=== PATIENT | male | born 1960 | race Caucasian/White ===

== ENCOUNTER → 2024-02-08 | Outpatient (CLI) | payer MEDICARE, OTHER ==
[2024-02-08 10:34] VITALS: BP 161/84; PULSE 53; RESP 16; TEMP 97.1
--- NOTE | 2024-02-08 15:07 | P.PAINPG ---
PQRS Measure Charge Sheet Comment: HISTORY OF PRESENT ILLNESS: A 63 yr old male w at side as a referral from Dr Dhillon presents today w severe and chronic LBP > 3 mo secondary to radiculopathy, spondylosis and facet arthropathy without myelopathy for evaluation. Pt states pain level is provoked at 8 /10 in intensity, constant, localized in the lumbar spine, predominantly axial, sharp in character w occasional shooting pain towards the L hip. Pain is provoked by bending. Pain is alleviated by PT x 6 wks which ended in 2014, medications ([place], Tramadol, Zanaflex, Ibu), topical Icy-Hot, heat, ice, repositioning and rest . PMH: OA, NIDDM II, Iron deficiency anemia, Vitamin D Deficiency PSH: Lumbar Fusion (2020), R Hip Replacement, BL Knee Replacement, BL Shoulder Surgery SH: Chewing tobacco, Occ ETOH use, No illicit drug use. and relocated from the [facility]. FH: Mo- CA, Fa- CA All: See list Meds: See list REVIEW OF ORGAN SYSTEMS: CONSTITUTIONAL: No fevers or chills. No recent weight loss. NEUROLOGICAL: + numbness and tingling along the distal extremities. No seizure disorders or headaches. MUSCULOSKELETAL: + pain PSYCHIATRIC: Denies current depression or suicidal thoughts. Physical Examinations : Constitutional : Cooperative , not in acute distress . Neurologic : Cranial nerve II to XII intact. No focal neurological deficits. Psychiatric : alert & oriented x 3. Matching mood & appropriate affect. Judgment & insight intact. Musculoskeletal : Cervical Spine Motor strength in the deltoid and biceps: Normal right side. Normal Left side Motor strength biceps and the wrist extensors: Normal right side . Normal left side Motor strength in the triceps muscle: Normal right side. Normal left side Deep tendon reflexes: Normal at the biceps. Normal at Brachioradialis. Normal at triceps Vertebral body tenderness to deep palpation over Cervical facet loading test: positive bilaterally Spurling test: positive bilaterally Neck distraction test: positive bilaterally Gustavo sign: positive bilaterally Lumbar spine Motor strength lower extremities ,thigh and legs 5/5 Right side , 5/5 Left side Deep tendon reflexes : Normal Knee Jerk. Normal Ankle Jerk Vertebral body tenderness over De La Garza Test positive Lumbar facet Loading Test: positive Right / positive Left Range of motion of the lumbar spine Flexion 30 degrees, extension 10 degrees Straight Leg Raise test: Left/ Right positive at degrees Jim test: positive right / positive left. Severe tenderness over the Sacroiliac joint on the Right / Left sides Gaenslen test: positive bilaterally Seated flexion test: positive bilaterally. Sacral spine : Severe tenderness over the Sacroiliac joint: right side / left side Range of motion: Flexion of the lumbar spine <60 degrees Range of motion: Extension of the lumbar spine <20 degrees Gaenslen's Test positive Jim test: positive right side / left side Thigh Thrust Test Sacral Thrust Test Imaging: None on file Assessment/ Plan : Lumbar radiculopathy Recommendation of lumbar x ray M54.16. May need additional testing if indicated. PT x 6 wks M54.16 . Opiate/ narcotic agreement signed 02/08/24. [place] 10/325mg #120 w 1 RF. Use, side effects, adverse reactions, safe storage discussed. All questions answered. I have spent greater than 30 minutes on patient care today. Dr Hill was available by phone for the evaluation of this patient. The time was used to review the medical records including relevant urine studies and Prescription history (MAPs), review of the available imaging, evaluation and examination of the patient, coordination of care with the medical staff and if applicable referring physicians, as well as creation of the medical record - Pain Location Bilateral Lower Back Non-Pharmacological Interventions: Chiropractic Treatment, Heat, Ice, Inactivity, Massage, Physical Therapy, Position/Reposition, Relaxation Technique, Sitting Pharmacological Interventions: PRN Medication, Scheduled Medication, Topical Medication Home Medications: Ambulatory Orders Anastrozole [Arimidex] 1 mg PO DAILY 02/08/24 Aspirin [Adult Low Dose Aspirin EC] 81 mg PO 02/08/24 Atorvastatin [Lipitor] 10 mg PO DAILY 02/08/24 Elderberry Fruit [Sambucus Elderberry Orig Syrup] 50 mg PO 02/08/24 HYDROcodone/APAP 10-325MG [[place] 10-325] 1 tab PO QID PRN 30 Days #120 tab 02/08/24 HYDROcodone/APAP 10-325MG [[place] 10-325] 1 tab PO QID PRN 30 Days #120 tab 02/08/24 Melatonin 5 mg PO HS 02/08/24 Niacin 1,000 mg PO 02/08/24 Testosterone Cypionate [Depo-Testosterone] 0 mg IM 02/08/24 metFORMIN HCL 1,000 mg PO 02/08/24 tiZANidine [Zanaflex] 4 mg PO Q8HR PRN 02/08/24 traMADol HCL 50 mg PO Q6H 02/08/24 Controlled Substance Measures - Controlled Substance Measures Is patient prescribed a controlled substance at discharge?: Yes When asked, does pt state using other controlled substances?: No If prescribed controlled substance>3 days was MAPS reviewed?: Yes If Rx opioid, was Start Talking consent form obtained?: Yes Was information provided regarding opioid addiction?: Yes
== END ==
LOC: PNWHC3 10:03
PROVIDERS: ATTEND Specialist
DX: M54.16 Radiculopathy, lumbar region (principal); M96.1 Postlaminectomy syndrome, not elsewhere classified; Z88.8 Allergy status to other drugs, medicaments and biological substances
CPT/HCPCS: 99202

== ENCOUNTER → 2024-02-08 | Outpatient (CLI) | payer MEDICARE, OTHER ==
--- NOTE | 2024-02-08 14:14 | XR ---
EXAMINATION TYPE: XR lumbar spine 2 or 3V DATE OF EXAM: 02/08/2024 11:55 AM COMPARISON: None CLINICAL INDICATION: Male, 63 years old with history of M54.16 RADICULOPATHY, LUMBAR REGION; [facility] TECHNIQUE: XR lumbar spine 2 or 3V - Frontal, lateral and coned in L5-S1 lateral views of the spine. FINDINGS: No evidence of any acute osseous pathology. No evidence of loss of vertebral body height i s seen. There is normal alignment of the lumbar vertebral bodies. Mild degeneration changes spine wit h disc space narrowing facet joint arthropathy. Post surgical changes spine at L4-L5 and S1. Hardware appears intact. Discectomy at L4-L5 and L5-S1. IMPRESSION: 1. No acute fracture. 2. Post surgical changes with hardware intact. 3. Mild multilevel disc degeneration. [facility], , 02/08/2024 2:12 PM
== END | disposition home or self-care (01) ==
LOC: RADXRMAIN 11:24
PROVIDERS: ATTEND Specialist
DX: M51.16 Intervertebral disc disorders with radiculopathy, lumbar region (principal); M47.27 Other spondylosis with radiculopathy, lumbosacral region
CPT/HCPCS: 72100

== ENCOUNTER → 2024-02-26 | Outpatient (CLI) | payer MEDICARE, OTHER ==
--- NOTE | 2024-02-26 10:15 | MR ---
EXAMINATION TYPE: MR lumbar spine wo con DATE OF EXAM: 02/26/2024 8:27 AM COMPARISON: None. CLINICAL INDICATION: Male, 63 years old with history of M54.16 RADICULOPATHY, LUMBAR REGION, Low back pain into rt leg IV Contrast: cc (None if empty) TECHNIQUE: Multiplanar, multisequence images of the lumbar spine were acquired without IV contrast. Findings: There are postsurgical changes of interbody and posterior metallic fusion of L4, L5 and S1. The lumbar vertebral segments are normal in height. Slight anterolisthesis of L4 on L5. The L1-2, L2-3 disks are normal in height and signal intensity. There is minimal narrowing of the L3- 4 disc indicating minimal degenerative disc disease. Evaluation of the thecal sac is mildly limited in the lower lumbar spine secondary to metallic artifa ct but there is no definite spinal stenosis or disc herniation. There is moderate to possibly severe neural foraminal stenosis at the L3-4 level on the right. There is no significant neural foraminal stenosis on the left. IMPRESSION: 1. Posterior changes from L3 through S1. 2. No lumbar disc herniation or spinal stenosis. 3. Minimal degenerative disease at the L3-4 level. 4. Moderate to possibly severe neuroforaminal stenosis at the L3-4 level on the right. [facility], , 02/26/2024 10:13 AM
== END | disposition home or self-care (01) ==
LOC: RADMRIMAIN 06:20
PROVIDERS: ATTEND Specialist
DX: M47.26 Other spondylosis with radiculopathy, lumbar region (principal)
CPT/HCPCS: 72148

== ENCOUNTER → 2024-04-04 | Outpatient (CLI) | payer MEDICARE, OTHER ==
[2024-04-04 11:53] VITALS: BP 160/78; PULSE 52; RESP 16; TEMP 97.3
--- NOTE | 2024-04-04 15:43 | P.PAINPG ---
PQRS Measure Charge Sheet Comment: HISTORY OF PRESENT ILLNESS: A 63 yr old male w at side presents today w severe and chronic LBP > 3 mo secondary to L4-S1 posterior fusion w hardware, post laminectomy syndrome for evaluation. Pt states pain level is provoked at 8 /10 in intensity, constant, localized in the lumbar spine, predominantly axial, sharp in character w occasional shooting pain towards the L hip. Pain is provoked by bending. Pain is alleviated by PT x 6 wks which ended in 2014, medications, topical, heat, ice, repositioning and rest . Interventional procedures include Medications include [place], Tramadol, Zanaflex, Ibu, Icy-Hot REVIEW OF ORGAN SYSTEMS: CONSTITUTIONAL: No fevers or chills. No recent weight loss. NEUROLOGICAL: + numbness and tingling along the distal extremities. No seizure disorders or headaches. MUSCULOSKELETAL: + pain PSYCHIATRIC: Denies current depression or suicidal thoughts. Physical Examinations : Constitutional : Cooperative , not in acute distress . Neurologic : Cranial nerve II to XII intact. No focal neurological deficits. Psychiatric : alert & oriented x 3. Matching mood & appropriate affect. Judgment & insight intact. Musculoskeletal : Cervical Spine Motor strength in the deltoid and biceps: Normal right side. Normal Left side Motor strength biceps and the wrist extensors: Normal right side . Normal left side Motor strength in the triceps muscle: Normal right side. Normal left side Deep tendon reflexes: Normal at the biceps. Normal at Brachioradialis. Normal at triceps Vertebral body tenderness to deep palpation over Cervical facet loading test: positive bilaterally Spurling test: positive bilaterally Neck distraction test: positive bilaterally Gustavo sign: positive bilaterally Lumbar spine Motor strength lower extremities ,thigh and legs 5/5 Right side , 5/5 Left side Deep tendon reflexes : Normal Knee Jerk. Normal Ankle Jerk Vertebral body tenderness over L3 De La Garza Test positive R> L L3-L4 Lumbar facet Loading Test: positive Right / positive Left Range of motion of the lumbar spine Flexion 30 degrees, extension 10 degrees Straight Leg Raise test: Left/ Right positive at degrees Jim test: positive right / positive left. Severe tenderness over the Sacroiliac joint on the Right / Left sides Gaenslen test: positive bilaterally Seated flexion test: positive bilaterally. Sacral spine : Severe tenderness over the Sacroiliac joint: right side / left side Range of motion: Flexion of the lumbar spine <60 degrees Range of motion: Extension of the lumbar spine <20 degrees Gaenslen's Test positive Jim test: positive right side / left side Thigh Thrust Test Sacral Thrust Test Imaging: MRI non contrast lumbar spine from 02/26/24 reviewed Assessment/ Plan : L4-S1 posterior fusion w hardware, post laminectomy syndrome Recommendation of medication refill and JOSE L3-L4 #1. PT script x 6 wks reissued M54.16. Risks, benefits of procedure discussed and pt verbalized understanding. Protocol for discontinuation/ continuation of medications florin procedure discussed. UDS collected 04/04/24. Opiate/ narcotic agreement signed 02/08/24. Perry 10/325mg #120 w 1 RF. Use, side effects, adverse reactions, safe storage discussed. All questions answered. I have spent greater than 30 minutes on patient care today. Dr Hill was available by phone for the evaluation of this patient. The time was used to review the medical records including relevant urine studies and Prescription history (MAPs), review of the available imaging, evaluation and examination of the patient, coordination of care with the medical staff and if applicable referring physicians, as well as creation of the medical record PQRS Narrative: Narcotic Agreement Date Signed 02/08/24 Hx Alcohol Use (MH) No Home Medications: Ambulatory Orders Anastrozole [Arimidex] 1 mg PO DAILY 02/08/24 Aspirin [Adult Low Dose Aspirin EC] 81 mg PO 02/08/24 Atorvastatin [Lipitor] 10 mg PO DAILY 02/08/24 Elderberry Fruit [Sambucus Elderberry Orig Syrup] 50 mg PO 02/08/24 Melatonin 5 mg PO HS 02/08/24 Niacin 1,000 mg PO 02/08/24 Testosterone Cypionate [Depo-Testosterone] 0 mg IM 02/08/24 metFORMIN HCL 1,000 mg PO 02/08/24 tiZANidine [Zanaflex] 4 mg PO Q8HR PRN 02/08/24 traMADol HCL 50 mg PO Q6H 02/08/24 HYDROcodone/APAP 10-325MG [[place] 10-325] 1 tab PO QID PRN 30 Days #120 tab 04/04/24 HYDROcodone/APAP 10-325MG [[place] 10-325] 1 tab PO QID PRN 30 Days #120 tab 04/04/24 Controlled Substance Measures - Controlled Substance Measures Is patient prescribed a controlled substance at discharge?: Yes When asked, does pt state using other controlled substances?: Yes If prescribed controlled substance>3 days was MAPS reviewed?: Yes
== END ==
LOC: PNWHC3 10:26
PROVIDERS: ATTEND Specialist
DX: M43.26 Fusion of spine, lumbar region (principal); M96.1 Postlaminectomy syndrome, not elsewhere classified; Z91.041 Radiographic dye allergy status
CPT/HCPCS: 80307; G0463; 99212

== ENCOUNTER 2024-04-14 13:19 | Emergency (ER) | payer MEDICARE, OTHER ==
[2024-04-14 14:11] VITALS: RESP 18
--- NOTE | 2024-04-14 14:52 | ED ---
Fall HPI - General Chief Complaint: Fall Stated Complaint: fall Time Seen by Provider: 04/14/24 13:31 Source: patient Mode of arrival: ambulatory Limitations: no limitations - History of Present Illness Initial Comments: 63-year-old male presents emergency department with chief complaint of slip and fall. Patient states he slipped on ice falling to his left hip. States he bumped his head but he has no complaints of pain. S states this happened yesterday. Patient states he has no dizziness no neck pain no upper back pain he was his lower back pain from prior surgeries no worsening symptoms primary complaint is left hip and upper ribs. - Related Data Home Medications Medication Instructions Recorded Confirmed Anastrozole [Arimidex] 1 mg PO DAILY 02/08/24 02/08/24 Aspirin [Adult Low Dose Aspirin EC] 81 mg PO 02/08/24 Atorvastatin [Lipitor] 10 mg PO DAILY 02/08/24 02/08/24 Elderberry Fruit [Sambucus 50 mg PO 02/08/24 Elderberry Orig Syrup] Melatonin 5 mg PO HS 02/08/24 02/08/24 Niacin 1,000 mg PO 02/08/24 Testosterone Cypionate 0 mg IM 02/08/24 [Depo-Testosterone] metFORMIN HCL 1,000 mg PO 02/08/24 tiZANidine [Zanaflex] 4 mg PO Q8HR PRN 02/08/24 02/08/24 traMADol HCL 50 mg PO Q6H 02/08/24 02/08/24 Previous Rx's Medication Instructions Recorded HYDROcodone/APAP 10-325MG [[place] 1 tab PO QID PRN 30 Days #120 tab 04/04/24 10-325] HYDROcodone/APAP 10-325MG [[place] 1 tab PO QID PRN 30 Days #120 tab 04/04/24 10-325] Allergies Allergy/AdvReac Type Severity Reaction Status Date / Time iodine Allergy Rash/Hives Verified 02/08/24 10:34 Review of Systems ROS Statement: Those systems with pertinent positive or pertinent negative responses have been documented in the HPI. ROS Other: All systems not noted in ROS Statement are negative. Past Medical History Past Medical History: Diabetes Mellitus Additional Past Medical History / Comment(s): DDD History of Any Multi-Drug Resistant Organisms: None Reported Past Surgical History: Orthopedic Surgery Additional Past Surgical History / Comment(s): back Past Psychological History: No Psychological Hx Reported Smoking Status: Unknown if ever smoked General Exam Limitations: no limitations General appearance: alert, in no apparent distress Head exam: Present: atraumatic, normocephalic, normal inspection Eye exam: Present: normal appearance, PERRL, EOMI. Absent: scleral icterus, conjunctival injection, periorbital swelling Neck exam: Present: full ROM Respiratory exam: Present: normal lung sounds bilaterally. Absent: respiratory distress, wheezes, rales, rhonchi, stridor Cardiovascular Exam: Present: regular rate, normal rhythm, normal heart sounds. Absent: systolic murmur, diastolic murmur, rubs, gallop, clicks GI/Abdominal exam: Present: soft, normal bowel sounds. Absent: distended, tenderness, guarding, rebound, rigid Extremities exam: Present: other (Left hip, left upper thigh swelling, tenderness to palpation neurovasc intact full range of motion upper extremities within normal limits) Back exam: Present: full ROM. Absent: tenderness Neurological exam: Present: alert, oriented X3, CN II-XII intact, reflexes normal. Absent: motor sensory deficit Skin exam: Present: warm, dry, intact, normal color. Absent: rash Course Vital Signs 04/14/24 04/14/24 13:25 14:10 Temperature 97.5 F L Pulse Rate 42 L 50 L Respiratory 16 18 Rate Blood Pressure 91/54 96/56 O2 Sat by Pulse 99 95 Oximetry Medical Decision Making - Medical Decision Making Was pt. sent in by a medical professional or institution (, PA, MIDDLE SCHOOL DIRECTOR, urgent care, hospital, or long term...) When possible be specific @ -No Did you speak to anyone other than the patient for history (EMS, parent, family, police, friend...)? What history was obtained from this source @ -No Did you review nursing and triage notes (agree or disagree)? Why? @ -I reviewed and agree with nursing and triage notes Were old charts reviewed (outside hosp., previous admission, EMS record, old EKG, old radiological studies, urgent care reports/EKG's, long term records)? Report findings @ -No old charts were reviewed Differential Diagnosis (chest pain, altered mental status, abdominal pain women, abdominal pain men, vaginal bleeding, weakness, fever, dyspnea, syncope, headache, dizziness, GI bleed, back pain, seizure, CVA, palpatations, mental health, musculoskeletal)? @ -Fall, pelvic fracture, hip fracture, hip contusion rib fracture EKG interpreted by me (3pts min.). @ -None X-rays interpreted by me (1pt min.). @ -Chest x-ray shows no acute cardiopulmonary process X-ray left hip AP pelvis no acute fracture CT interpreted by me (1pt min.). @ -None done U/S interpreted by me (1pt. min.). @ -None done What testing was considered but not performed or refused? (CT, X-rays, U/S, labs)? Why? @ -None What meds were considered but not given or refused? Why? @ -None Did you discuss the management of the patient with other professionals (professionals i.e. , PA, MIDDLE SCHOOL DIRECTOR, lab, RT, psych nurse, social media manager, infusion therapy nurse, teacher, airfield services officer, child support case officer)? Give summary @ -No Was smoking cessation discussed for >3mins.? @ -No Was critical care preformed (if so, how long)? @ -No Were there social determinants of health that impacted care today? How? (Homelessness, low income, unemployed, alcoholism, drug addiction, transportation, low edu. Level, literacy, decrease access to med. care, nursing home, rehab)? @ -No Was there de-escalation of care discussed even if they declined (Discuss DNR or withdrawal of care, Hospice)? DNR status @ -No What co-morbidities impacted this encounter? (DM, HTN, Smoking, COPD, CAD, Cancer, CVA, ARF, Chemo, Hep., AIDS, mental health diagnosis, sleep apnea, morbid obesity)? @ -None Was patient admitted / discharged? Hospital course, mention meds given and route, prescriptions, significant lab abnormalities, going to OR and other pertinent info. @ -Discharge patient presented for slip and fall he is ambulatory patient has left hip contusion hematoma will be discharged in stable condition return parameters gt. Undiagnosed new problem with uncertain prognosis? @ -No Drug Therapy requiring intensive monitoring for toxicity (Heparin, Nitro, Insulin, Cardizem)? @ -No Were any procedures done? @ -No Diagnosis/symptom? @ -Left hip contusion, slip and fall Acute, or Chronic, or Acute on Chronic? @ -Acute Uncomplicated (without systemic symptoms) or Complicated (systemic symptoms)? @ -Uncomplicated Side effects of treatment? @ -No Exacerbation, Progression, or Severe Exacerbation? @ -No Poses a threat to life or bodily function? How? (Chest pain, [place], [place], pneumonia, PE, COPD, DKA, ARF, appy, cholecystitis, CVA, Diverticulitis, Homicidal, Suicidal, threat to staff... and all critical care pts) @ -No Disposition Clinical Impression: Fall, Hip hematoma, left, Contusion, hip Disposition: HOME SELF-CARE Condition: Stable Instructions (If sedation given, give patient instructions): Hip Contusion (ED) Additional Instructions: Please return to the Emergency Department if symptoms worsen or any other concerns. Is patient prescribed a controlled substance at d/c from ED?: No Referrals: Edd Dhillon Jr, DO [Primary Care Provider] - 1-2 days Time of Disposition: 15:34
--- NOTE | 2024-04-14 15:28 | XR ---
EXAMINATION TYPE: XR Hip LT and AP Pelvis DATE OF EXAM: 04/14/2024 2:53 PM COMPARISON: None CLINICAL INDICATION: Male, 63 years old with history of fall, pain; PHH, pain TECHNIQUE: XR Hip LT and AP Pelvis; hip was examined in the frontal and lateral projections and a AP pelvis. FINDINGS: No evidence for acute process, joint dislocation or significant soft tissue swelling. Right hip arthroplasty appears intact. Degeneration changes of the lower spine appears intact. Mild d egeneration changes left hip. IMPRESSION: No acute process. [facility], , 04/14/2024 3:25 PM
--- NOTE | 2024-04-14 15:30 | XR ---
EXAMINATION TYPE: XR chest 1V DATE OF EXAM: 04/14/2024 2:53 PM COMPARISON: Chest radiographs from CLINICAL INDICATION: Male, 63 years old with history of fall, pain; TECHNIQUE: XR chest 1V Frontal view of the chest. FINDINGS: Lungs/Pleura: There is no evidence of pleural effusion, focal consolidation, or pneumothorax. Pulmonary vascularity: Unremarkable. Heart/mediastinum: Cardiomediastinal silhouette is unremarkable. Musculoskeletal: No acute osseous pathology. IMPRESSION: No acute cardiopulmonary disease/process. [facility], , 04/14/2024 3:27 PM
[2024-04-14 15:49] VITALS: BP 152/81; PULSE 48; TEMP 98
== END 2024-04-14 16:20 | disposition home or self-care (01) ==
LOC: EC 13:19
DX: S70.02XA Contusion of left hip, initial encounter (principal); Z88.8 Allergy status to other drugs, medicaments and biological substances; W00.0XXA Fall on same level due to ice and snow, initial encounter
CPT/HCPCS: 71045; 73502; 99283

== ENCOUNTER 2024-04-21 08:21 | Day surgery (SDC) | payer MEDICARE, OTHER ==
[2024-04-20 09:05] VITALS: BMI 38.7
[2024-04-21] MEDS ORDERED: LACTATED RINGERS 1,000 ML IV SCH (08:29)
[2024-04-21 08:39] VITALS: TEMP 97.8
[2024-04-21 08:45] LABS: Glucose,Whole Blood 118 mg/dL (70-110)
[2024-04-21] MEDS ORDERED: methylPREDNISolone ACETATE 80 MG/ML 1 ML VIAL ONE (09:48)
[2024-04-21] MEDS ORDERED: IOPAMIDOL M300 15ML VIAL ONE (09:48)
--- NOTE | 2024-04-21 10:03 | P.PCN ---
Description of Procedure: PREOPERATIVE DIAGNOSIS: 1- Lumbar Degenerative Disc Diseases 2-Lumbar spondylosis with Facet arthropathy without myelopathy. 3-lumbar spinal stenosis POSTOPERATIVE DIAGNOSIS: 1-lumbar degenerative disc disease. 2-lumbar spondylosis with facet arthropathy without myelopathy. 3-lumbar spinal stenosis. PROCEDURE Injection of radio contrast material into L3-4 interspace, interpretation of epidurogram, injection of steroid at L3-4 epidural space under fluoroscopic guidance. ANESTHESIA: Lidocaine 1% subcutaneously. In OR continuous pulse ox, EKG, blood pressure and verbal communication was maintained with the patient. EBL: Minimal PROCEDURE INDICATION: Before the procedure were discussed with the patient detailed procedure, alternatives, complications including infection, bleeding, nerve damage, paralysis all of which could be permanent. Patient understands and all questions were answered. PROCEDURE DESCRIPTION : After getting consent, patient in OR in prone position. Back was prepped with chlorhexidine and draped in sterile fashion. After injecting 10 mL of 1% lidocaine subcutaneously, a 20-gauge Tuohy needle was introduced at L3-4 interspace with loss of resistance technique using a syringe filled with air. Negative CSF, negative blood, negative paresthesia. Needle position was confirmed with AP and lateral view of the fluoroscope. After repeat negative aspiration 2 mL of Omnipaque 200 water soluble contrast was injected. Contrast was noted in the epidural space. No contrast was noted into intrathecal or intravascular space. After repeat negative aspiration 6 mL solution was injected intermittently which consists of 5 mL of preservative-free normal saline mixed with 1 mL of 80 mg Depo-Medrol. Needle was withdrawn intact. Skin was cleansed and Band-Aids was applied. DISPOSITION / PLANS: The patient tolerated the procedure well. No complication. The patient was placed in a supine position and transferred to the recovery area in a stable condition for observation. There was no evidence of lower extremity motor or sensory deficit after the procedure. Patient was discharged from the recovery room after meeting discharge criteria. Home discharge instructions were given to the patient by the staff. The patient was reexamined prior to discharge. The patient will schedule a follow up in the clinic in 2-4 weeks.
--- NOTE | 2024-04-21 10:21 | FL ---
Intraoperative/procedural fluoroscopic services were provided for lumbar epidural steroid injection. Total fluoroscopy time is 22.5 seconds with a total of 3 submitted images to PACS. Total DAP [id number] [id number]. Please see the operative note for further details. [facility], , 04/21/2024 10:18 AM
[2024-04-21 10:30] VITALS: BP 157/75; PULSE 47; RESP 18
== END 2024-04-21 10:41 | disposition home or self-care (01) ==
LOC: ORPAIN 08:21
PROVIDERS: ATTEND Pain Medicine Interventional Pain Medicine
DX: M47.816 Spondylosis without myelopathy or radiculopathy, lumbar region (principal); M51.369 Other intervertebral disc degeneration, lumbar region without mention of lumbar back pain or lower extremity pain; M48.061 Spinal stenosis, lumbar region without neurogenic claudication
CPT/HCPCS: 62323; Q9967; J1010

== ENCOUNTER → 2024-05-30 | Outpatient (CLI) | payer MEDICARE, OTHER ==
[2024-05-30 11:09] VITALS: BP 164/86; PULSE 52; RESP 16; TEMP 97.3
--- NOTE | 2024-05-30 13:45 | P.PAINPG ---
PQRS Measure Charge Sheet Comment: HISTORY OF PRESENT ILLNESS: A 63 yr old male w at side presents today w severe and chronic LBP > 3 mo secondary to L4-S1 posterior fusion w hardware, post laminectomy syndrome for evaluation s/p JOSE L3-L4 #1. Pt states he experienced 40 % pain relief x 6 wks s/p procedure. Pt states pain level is provoked at 8 /10 in intensity, constant, localized in the lumbar spine, predominantly axial, sharp in character without shooting pain. Pain is provoked by bending. Pain is alleviated by PT x 6 wks which ended in 2014, medications, topical, heat, ice, repositioning and rest . Interventional procedures include JOSE L3-L4 x1 Medications include [place], Tramadol, Zanaflex, Ibu, Icy-Hot REVIEW OF ORGAN SYSTEMS: CONSTITUTIONAL: No fevers or chills. No recent weight loss. NEUROLOGICAL: + numbness and tingling along the distal extremities. No seizure disorders or headaches. MUSCULOSKELETAL: + pain PSYCHIATRIC: Denies current depression or suicidal thoughts. Physical Examinations : Constitutional : Cooperative , not in acute distress . Neurologic : Cranial nerve II to XII intact. No focal neurological deficits. Psychiatric : alert & oriented x 3. Matching mood & appropriate affect. Judgment & insight intact. Musculoskeletal : Cervical Spine Motor strength in the deltoid and biceps: Normal right side. Normal Left side Motor strength biceps and the wrist extensors: Normal right side . Normal left side Motor strength in the triceps muscle: Normal right side. Normal left side Deep tendon reflexes: Normal at the biceps. Normal at Brachioradialis. Normal at triceps Vertebral body tenderness to deep palpation over Cervical facet loading test: positive bilaterally Spurling test: positive bilaterally Neck distraction test: positive bilaterally Gustavo sign: positive bilaterally Lumbar spine Motor strength lower extremities ,thigh and legs 5/5 Right side , 5/5 Left side Deep tendon reflexes : Normal Knee Jerk. Normal Ankle Jerk Vertebral body tenderness over L3 De La Garza Test positive R> L L3-L4 Lumbar facet Loading Test: positive Right / positive Left L4-L5, L5-S1 Range of motion of the lumbar spine Flexion 30 degrees, extension 10 degrees Straight Leg Raise test: Left/ Right positive at degrees Jim test: positive right / positive left. Severe tenderness over the Sacroiliac joint on the Right / Left sides Gaenslen test: positive bilaterally Seated flexion test: positive bilaterally. Sacral spine : Severe tenderness over the Sacroiliac joint: right side / left side Range of motion: Flexion of the lumbar spine <60 degrees Range of motion: Extension of the lumbar spine <20 degrees Gaenslen's Test positive Jim test: positive right side / left side Thigh Thrust Test Sacral Thrust Test Imaging: MRI non contrast lumbar spine from 02/26/24 reviewed Assessment/ Plan : L4-S1 posterior fusion w hardware, post laminectomy syndrome Recommendation of medication refill and BL MBB L4-L5, L5-S1 #1. Risks, benefits of procedure discussed and pt verbalized understanding. Protocol for discontinuation/ continuation of medications florin procedure discussed. Minimal anesthesia including Fentanyl and Versed if clinically indicated. UDS from 04/04/24 reviewed and consistent. Opiate/ narcotic agreement signed 02/08/24. [place] 10/325mg #120 w 1 RF. Use, side effects, adverse reactions, safe storage discussed. Script for LSO provided M54.16, G89.4 . All questions answered. I have spent greater than 30 minutes on patient care today. Dr Hill was available by phone for the evaluation of this patient. The time was used to review the medical records including relevant urine studies and Prescription history (MAPs), review of the available imaging, evaluation and examination of the patient, coordination of care with the medical staff and if applicable referring physicians, as well as creation of the medical record - Pain Location Bilateral Lower Back Non-Pharmacological Interventions: Elevation, Heat, Inactivity, Physical Therapy, Position/Reposition, Sitting, Standing Pharmacological Interventions: Epidural, PRN Medication, Scheduled Medication, Topical Medication PQRS Narrative: Narcotic Agreement Date Signed 02/08/24 Hx Alcohol Use (MH) No Home Medications: Ambulatory Orders Anastrozole [Arimidex] 1 mg PO DAILY 02/08/24 Aspirin [Adult Low Dose Aspirin EC] 81 mg PO DAILY 02/08/24 Atorvastatin [Lipitor] 10 mg PO DAILY 02/08/24 Elderberry Fruit [Sambucus Elderberry Orig Syrup] 50 mg PO DAILY 02/08/24 Melatonin 5 mg PO HS 02/08/24 Niacin 2,000 mg PO DAILY 02/08/24 Testosterone Cypionate [Depo-Testosterone] 0 mg IM DAILY 02/08/24 metFORMIN HCL 750 mg PO BID 02/08/24 tiZANidine [Zanaflex] 4 mg PO Q8HR PRN 02/08/24 HYDROcodone/APAP 10-325MG [[place] 10-325] 1 tab PO QID PRN 30 Days #120 tab 04/04/24 Varenicline [Chantix Continuing Pack] 1 mg PO BID 04/20/24 Controlled Substance Measures - Controlled Substance Measures Is patient prescribed a controlled substance at discharge?: Yes When asked, does pt state using other controlled substances?: Yes If prescribed controlled substance>3 days was MAPS reviewed?: Yes
== END ==
LOC: PNWHC3 10:33
PROVIDERS: ATTEND Specialist
DX: M43.27 Fusion of spine, lumbosacral region (principal); M96.1 Postlaminectomy syndrome, not elsewhere classified; Z79.899 Other long term (current) drug therapy; Z91.041 Radiographic dye allergy status
CPT/HCPCS: 99211

== ENCOUNTER 2024-06-16 07:55 | Day surgery (SDC) | payer MEDICARE, OTHER ==
[2024-06-16] MEDS: LACTATED RINGERS 1,000 ML IV SCH (08:42)
[2024-06-16 08:55] VITALS: RESP 18; TEMP 97.4
[2024-06-16 09:03] LABS: Glucose,Whole Blood 107 mg/dL (70-110)
[2024-06-16] MEDS: IV FLUID CONTINUATION 1,000 ML IV ONE ×2 (09:05→10:05)
[2024-06-16] MEDS ORDERED: ROPIVACAINE 5MG/ML 20ML VIAL ONE (09:38)
[2024-06-16] MEDS ORDERED: MIDAZOLAM 2 MG/2 ML VIAL ONE (09:38)
--- NOTE | 2024-06-16 10:07 | P.PCN ---
Description of Procedure: Preprocedure diagnosis. 1. Lumbar spondylosis with facet joint arthropathy without myelopathy. 2. Lumbar degenerative disc disease. Postprocedure diagnosis. As above. Procedure done. Bilateral diagnostic block with local anesthetics at L3, L4, L5 medial branch to target the facet joint L4- 5 and L5-S1 with fluoroscopic guidan ce (fluoroscopy images are available in the radiology department) . Anesthesia. Moderate sedation with intravenous Versed 2 mg and local infiltration with local anesthetics. In OR, continuous pulse ox, EKG, blood pressure and verbal communication was maintained. Sedation time-start end . Blood loss. Minimal. Indication. The patient has low back pain secondary to lumbar facet joint arthropathy. Discussed the procedure and alternative and complications which includes infection, bleeding, nerve damage, paralysis ,aggravation of pain. Patient understands and all questions were answered. Patient iunderstands that if any pain relief occurs it will last for a few hours to a few days maximum. Procedure description. After getting consent patient was taken in the OR in prone position. Back prepped with chlorhexidine and draped in sterile fashion. After injecting 5 mL of plain 1% lidocaine subcutaneously, a 22-gauge spinal needle was introduced under tunnel vision of the fluoroscope at the junction of the superior articular process with RIGHT ala of the sacrum. With slight oblique fluoroscope, after injecting 5 mL of plain 1% lidocaine subcutaneously, a 22-gauge spinal needle was introduced under tunnel vision of the fluoroscope at the junction of the superior articular process with RIGHT L5 transverse process, junction of the superior articular process with the RIGHT L4 transverse process. Negative CSF, negative blood, negative paresthesia. After needle position confirmation by AP and crosstable lateral view, after negative aspiration, half milliliters of solution were injected at each point. Total 1- 1/2 mL of solution was injected on the right side which consists of 0.5% ropivacaine. In exactly same way, LEFT sided injections were done at the following 3 points. Junction of the superior articular process with left ala of the sacrum, junction of the superior articular process with the left L5 transverse process, junction of the superior articular process with left L4 transverse process using 0.5 mL of solution at each point. Total 1-1/2 mL of solution was injected on the left side which consists of 0.5% ropivacaine . Spinal needles were taken out and bandages were applied. Disposition. Patient tolerated the procedure well. No complication. Discharged home in stable condition
--- NOTE | 2024-06-16 10:08 | FL ---
EXAMINATION TYPE: FL guided pain mgmt statistic Intraoperative/procedural fluoroscopic services were provided. CLINICAL INDICATION:Male, 63 years old with history of FACET BLOCK KAUR; , PHH FINDINGS: Fluoroscopic images demonstrating bilateral lumbar facet block. No radiographic evidence for complica tion. Postsurgical changes with bilateral pedicle screws and rods and disc spacers involving L4-S1. Total fluoroscopy time is 77.4 seconds. DAP: 0.97628 mGym2 Please see the operative/procedural note for further details. [facility], , 06/16/2024 10:05 AM
[2024-06-16 10:21] VITALS: BP 138/75; PULSE 45
== END 2024-06-16 10:41 | disposition home or self-care (01) ==
LOC: ORPAIN 07:55
PROVIDERS: ATTEND Pain Medicine Interventional Pain Medicine
DX: M47.816 Spondylosis without myelopathy or radiculopathy, lumbar region (principal); M51.369 Other intervertebral disc degeneration, lumbar region without mention of lumbar back pain or lower extremity pain; Z88.8 Allergy status to other drugs, medicaments and biological substances
CPT/HCPCS: 64493; 64494; J2250; J2795; 99152

== ENCOUNTER → 2024-07-20 | Outpatient (CLI) | payer MEDICARE, OTHER ==
[2024-07-20 07:57] VITALS: BP 159/89; PULSE 60; RESP 17; TEMP 97.2
--- NOTE | 2024-07-20 16:47 | P.PAINPG ---
PQRS Measure Charge Sheet Comment: HISTORY OF PRESENT ILLNESS: A 63 yr old male w at side presents today w severe and chronic LBP > 3 mo secondary to L4-S1 posterior fusion w hardware, post laminectomy syndrome for evaluation s/p BL MBB L4-L5, L5-S1 #1. Pt states he experienced 90 % pain relief x 1 day s/p procedure. Pt states pain level is provoked at 8 /10 in intensity, constant, localized in the lumbar spine, predominantly axial, sharp in character without shooting pain. Pain is provoked by bending. Pain is alleviated by PT x 6 wks which ended in 2014, medications, topical, heat, ice, repositioning and rest . Pt and called [employer], their ins carrier, whom advised them they can get 1 override a year for 90 day supply medications when traveling out of town. Currently, they will return to [facility], a [address] from [place], and can not fill their medications there. Interventional procedures include JOSE L3-L4 x1, BL MBB L3-L5 x1 Medications include [place], Tramadol, Zanaflex, Ibu, Icy-Hot REVIEW OF ORGAN SYSTEMS: CONSTITUTIONAL: No fevers or chills. No recent weight loss. NEUROLOGICAL: + numbness and tingling along the distal extremities. No seizure disorders or headaches. MUSCULOSKELETAL: + pain PSYCHIATRIC: Denies current depression or suicidal thoughts. Physical Examinations : Constitutional : Cooperative , not in acute distress . Neurologic : Cranial nerve II to XII intact. No focal neurological deficits. Psychiatric : alert & oriented x 3. Matching mood & appropriate affect. Judgment & insight intact. Musculoskeletal : Cervical Spine Motor strength in the deltoid and biceps: Normal right side. Normal Left side Motor strength biceps and the wrist extensors: Normal right side . Normal left side Motor strength in the triceps muscle: Normal right side. Normal left side Deep tendon reflexes: Normal at the biceps. Normal at Brachioradialis. Normal at triceps Vertebral body tenderness to deep palpation over Cervical facet loading test: positive bilaterally Spurling test: positive bilaterally Neck distraction test: positive bilaterally Gustavo sign: positive bilaterally Lumbar spine Motor strength lower extremities ,thigh and legs 5/5 Right side , 5/5 Left side Deep tendon reflexes : Normal Knee Jerk. Normal Ankle Jerk Vertebral body tenderness over L3 De La Garza Test positive R> L L3-L4 Lumbar facet Loading Test: positive Right / positive Left L4-L5, L5-S1 Range of motion of the lumbar spine Flexion 30 degrees, extension 10 degrees Straight Leg Raise test: Left/ Right positive at degrees Jim test: positive right / positive left. Severe tenderness over the Sacroiliac joint on the Right / Left sides Gaenslen test: positive bilaterally Seated flexion test: positive bilaterally. Sacral spine : Severe tenderness over the Sacroiliac joint: right side / left side Range of motion: Flexion of the lumbar spine <60 degrees Range of motion: Extension of the lumbar spine <20 degrees Gaenslen's Test positive Jim test: positive right side / left side Thigh Thrust Test Sacral Thrust Test Imaging: MRI non contrast lumbar spine from 02/26/24 reviewed Assessment/ Plan : L4-S1 posterior fusion w hardware, post laminectomy syndrome Recommendation of medication refill and BL MBB L4-L5, L5-S1 #2. Risks, benefits of procedure discussed and pt verbalized understanding. Protocol for discontinuation/ continuation of medications florin procedure discussed. Minimal anesthesia including Fentanyl and Versed if clinically indicated. UDS from 04/04/24 reviewed and consistent. Opiate/ narcotic agreement signed 02/08/24. [place] 10/325mg #360. Use, side effects, adverse reactions, safe storage discussed. Script for LSO provided M54.16, G89.4 . All questions answered. I have spent greater than 30 minutes on patient care today. Dr Hill was available by phone for the evaluation of this patient. The time was used to review the medical records including relevant urine studies and Prescription history (MAPs), review of the available imaging, evaluation and examination of the patient, coordination of care with the medical staff and if applicable referring physicians, as well as creation of the medical record - Pain Location Lower Back Non-Pharmacological Interventions: Relaxation Technique Pharmacological Interventions: Block, Medication, Topical Medication PQRS Narrative: Narcotic Agreement Date Signed 02/08/24 Hx Alcohol Use (MH) No Home Medications: Ambulatory Orders Anastrozole [Arimidex] 1 mg PO MOTH 02/08/24 Aspirin [Adult Low Dose Aspirin EC] 81 mg PO DAILY 02/08/24 Atorvastatin [Lipitor] 10 mg PO DAILY 02/08/24 Elderberry Fruit [Sambucus Elderberry Orig Syrup] 50 mg PO DAILY 02/08/24 Melatonin 5 mg PO HS 02/08/24 Niacin 2,000 mg PO DAILY 02/08/24 Testosterone Cypionate [Depo-Testosterone] 0.5 ml IM Q7D 02/08/24 metFORMIN HCL 750 mg PO BID 02/08/24 tiZANidine [Zanaflex] 4 mg PO Q8HR PRN 02/08/24 Varenicline [Chantix Continuing Pack] 1 mg PO BID 04/20/24 Ascorbic Acid [Vitamin C chew] 500 mg PO DAILY 06/15/24 Ascorbic Acid [Vitamin C] 1,000 mg PO DAILY 06/15/24 Calcium 26/Vit D3/Magnesium 15 [Eevpamf-Lkr-M6 Complx 167Mg Cp] 1 tab PO DAILY 06/15/24 Calm Powder 1 dose PO HS 06/15/24 Cholecalciferol [Vitamin D3 (125 Mcg = 5000 Iu)] 125 mcg PO DAILY 06/15/24 Cyanocobalamin (Vitamin B-12) [Vitamin B-12] 5,000 mcg PO Q48H 06/15/24 Ferrous Sulfate [Iron (65 MG Elemental)] 325 mg PO DAILY 06/15/24 Glucosamine/MSM/Chrond/D3/Bosw [Ykdjqhuaxsw-Kcmqol-Uui D3 Cplt] 1 tab PO DAILY 06/15/24 Multivitamin [Multivitamins Adult Gummies] 1 tab PO DAILY 06/15/24 [place]-3/Dha/Epa/Fish Oil [[place]-3 Fish Oil 1,000 mg Sfgl] 1 tab PO DAILY 06/15/24 Thiamine [Vitamin B-1] 100 mg PO DAILY 06/15/24 Vitamin B Complex 1 tab PO Q48H 06/15/24 Vitamin E (Dl,Tocopheryl Acet) [Vitamin E (100 Iu = 45MG)] 180 mg PO DAILY 06/15/24 Zinc Gluconate [Zinc] 50 mg PO DAILY 06/15/24 HYDROcodone/APAP 10-325MG [[place] 10-325] 1 tab PO QID PRN 90 Days #360 tab 07/20/24 Controlled Substance Measures - Controlled Substance Measures Is patient prescribed a controlled substance at discharge?: Yes When asked, does pt state using other controlled substances?: No If prescribed controlled substance>3 days was MAPS reviewed?: Yes
== END ==
LOC: PNWHC3 07:43
PROVIDERS: ATTEND Specialist
DX: M43.26 Fusion of spine, lumbar region (principal); M96.1 Postlaminectomy syndrome, not elsewhere classified; Z91.041 Radiographic dye allergy status
CPT/HCPCS: 99212

== ENCOUNTER 2024-07-29 09:22 | Day surgery (SDC) | payer MEDICARE, OTHER ==
[~2024-07-29 09:22] MED LIST: LACTATED RINGERS 1,000 ML IV SCH
[2024-07-29 10:52] VITALS: RESP 16; TEMP 98
[2024-07-29 11:00] LABS: Glucose,Whole Blood 99 mg/dL (70-110)
[2024-07-29] MEDS ORDERED: GLYCOPYRROLATE 0.2 MG/ML 2 ML VIAL ONE (11:31)
[2024-07-29] MEDS ORDERED: ROPIVACAINE 5 MG/ML 30 ML VIAL ONE (11:31)
[2024-07-29] MEDS ORDERED: MIDAZOLAM 2 MG/2 ML VIAL ONE (11:31)
--- NOTE | 2024-07-29 11:47 | P.PCN ---
Date of Procedure: 07/29/24 Procedure(s) Performed: PREOPERATIVE DIAGNOSIS : 1- Lumbar spondylosis with Facet Arthropathy without myelopathy . 2- Lumber degenerative disc disease POSTOPERATIVE DIAGNOSIS: 1- Lumbar spondylosis with Facet Arthropathy without myelopathy . 2- Lumber degenerative disc disease PROCEDURE: Diagnostic bilateral L3 ,L4 , and L5 medial branch block under fluoroscopy guidance(fluoroscopy images available in the radiology Department ) ( To target the facet joint between Bilateral L4-5 , and L5-S1 )#2nd ANESTHESIA: moderate sedation with intravenous Versed 2 mg .(Sedation start time 11:31 end time 11:42 ) EBL: Minimal COMPLICATION: None PROCEDURE INDICATION: Chronic low back pain secondary to Facet arthropathy unresponsive to conservative treatment. PROCEDURE DESCRIPTION: the patient was seen and identified in the preop holding area , risks and benefits and possible complications of the procedure and alternative were discussed with the patient, and the patient agreed to proceed with the procedure and signed the consent and vital signs monitored during the procedure and fluoroscopy was used to maximize the benefit and accuracy of the needle placement, and sedation was given to decrease patient anxiety, patient was taken to the procedure room and placed in prone position vital signs monitored in the back prepped with chlorhexidine X3 then under strict sterile technique using a right oblique fluoroscopy ,the junction of the transverse process and the superior articulating process of the right L3 ,L4 , L5 vertebra which corresponding to the fluoroscopy image of the eye of the Facundo dog on the block side for the medial branches and subsequently , after local infiltration of skin and subcu tissuies with Ropivacaine 0.5 % , one mL at each level ,then 23-gauge 3.5 inches long Quincke-type needles , 3 needle was used , each one of them placed at the junction of the base of the transverse process and the superior articular process at the appropriate level, and the needle was advanced until the periosteum contacted, needle placement confirmed with AP oblique and lateral view and after appropriate needle placement confirmed, and after negative aspiration for heme and CSF and there was no paresthesia 1-1/2 mL of Ropivacaine 0.5% , then half mL injected at each level after negative aspiration the needle subsequently removed and the same procedure repeated for the left side at left side at L3 ,L4 , L5 levels. At the end of the procedure and the needles removed and a bandage applied after the skin was cleaned the cleaning solution patient taken to recovery room in stable condition and monitors in the recovery room for 20-30 minutes and discharged home in stable condition after discharge criteria met and patient will follow up with the pain clinic in 2-4 weeks
[2024-07-29] MEDS: IV FLUID CONTINUATION 1,000 ML IV ONE (11:54)
--- NOTE | 2024-07-29 11:55 | FL ---
EXAMINATION TYPE: FL guided pain mgmt statistic DATE OF EXAM: 07/29/2024 CLINICAL INDICATION: Male, 63 years old with history of Octavio Lumbar Facet; PHH, pain TECHNIQUE: Fluoroscopy. COMPARISON: None. FINDINGS: Fluoroscopic guidance was provided during pain relief procedure performed by Dr. Hill . A total of 26.3 seconds of fluoroscopic time was utilized during the procedure and 4 spot images a re acquired. Images acquired shows needle localization at several levels in the lower lumbar spine. Postsurgical changes L4-S1 levels is present. Total DAP: 0.08866 mGym2. IMPRESSION: As Above. [facility], , 07/29/2024 11:53 AM
[2024-07-29 12:15] VITALS: BP 137/69; PULSE 69
== END 2024-07-29 12:30 | disposition home or self-care (01) ==
LOC: ORPAIN 09:22
PROVIDERS: ATTEND Specialist
DX: M47.816 Spondylosis without myelopathy or radiculopathy, lumbar region (principal); M51.369 Other intervertebral disc degeneration, lumbar region without mention of lumbar back pain or lower extremity pain; Z88.8 Allergy status to other drugs, medicaments and biological substances
CPT/HCPCS: 64493; 64494; J2250; J2795; J1596; 99152

== ENCOUNTER 2024-09-15 06:19 | Day surgery (SDC) | payer MEDICARE, OTHER ==
[2024-09-15] MEDS: IV FLUID CONTINUATION 1,000 ML IV ONE (06:50)
[2024-09-15] MEDS ORDERED: LACTATED RINGERS 1,000 ML IV SCH (07:00)
[2024-09-15 07:10] LABS: Glucose,Whole Blood 112 mg/dL (70-110)
[2024-09-15 07:15] VITALS: RESP 16; TEMP 97.8
[2024-09-15] MEDS ORDERED: ROPIVACAINE 5 MG/ML 30 ML VIAL ONE (07:40)
[2024-09-15] MEDS ORDERED: MIDAZOLAM 2 MG/2 ML VIAL ONE (07:40)
[2024-09-15] MEDS ORDERED: GLYCOPYRROLATE 0.2 MG/ML 2 ML VIAL ONE (07:40)
[2024-09-15] MEDS ORDERED: fentaNYL (PF) 50 MCG/ML 2 ML AMP ONE (07:40)
[2024-09-15] MEDS ORDERED: methylPREDNISolone ACETATE 40 MG/ML 1 ML VIAL ONE (07:40)
--- NOTE | 2024-09-15 08:05 | P.PCN ---
Date of Procedure: 09/15/24 Procedure(s) Performed: PREOPERATIVE DIAGNOSIS: 1-Lumbar Spondylosis with Facet Arthropathy without myelopathy. 2- Lumber degenerative disc disease. POSTOPERATIVE DIAGNOSIS: 1- Lumbar Spondylosis with Facet Arthropathy without myelopathy. 2- Lumber degenerative disc disease. PROCEDURES : Bilateral Radiofrequency thermocoagulation, L3 , L4 , L5 medial branch, with fluoroscopic guidance (fluoroscopy images in the radio dept) ( to denervate the facet joint at bilateral L4-5 ,and L5-S1 levels ). ANESTHESIA: Moderate sedation with intravenous versed 2 mg and fentaneyl 50 mcg,(sedation start time07:40 ,end time 08:01 ). EBL: Minimal PROCEDURE INDICATION: The patient with low back pain secondary to lumbar facet arthropathy who had more than 80% relief of her pain with previous diagnostic lumbar medial branch block with bupivacaine. PROCEDURE DESCRIPTION / TECHNIQUE: The patient was seen and identified in the preoperative area. Risks, benefits, complications, including but not limited to risk of infection ,bleeding , allergic reactions to the medications and no complete pain releife , and alternatives were discussed with the patient, the patient agreed to proceed with the procedure and signed the consent. IV was started. Vital signs remained stable throughout the procedure. Patient was taken to the OR and time out was completed. The patient was placed in the prone position on the procedure table. The lumber area was prepped and draped in the usual sterile fashion. . Vital signs were closely monitored during the procedure .IV sedation was used during the procedure to decrease patients anxiety. Using AP and then oblique fluoroscopy, the ``eye of the Facundo dog corresponding to the connection between the superior and transverse articular processes of right L3, L4, and L5 were identified, marked, and localized with 1% lidocaine. Subsequently, a 18 guage(VENOM )100-mm radiofrequency cannula with a 10-mm active tip was advanced guided by fluoroscopy to each of the``eyes of the Facundo dog at right L3, L4, and L5. Each site then underwent sensory testing at 50 Hz and 0 to 1 volt and motor testing at 2.5 Hz and 0 to 3 volt with local stimulation, but no radicular symptoms down the legs. Thereafter each sites underwent radiofrequency thermocoagulation at 80 degrees celsius for 90 seconds after injecting 0.5 ml of PF Ropivacaine 1ml, then after the thermocoagulation done , 1 ml of the block solution containing Depo-Medrol 20 mg and 3 ml of Ropivacaine 0.5% was injected at the right L3 , L4 , and L5 , levels after negative aspiration of CSF and blood and with no paresthesias. Cannulas were retracted while injecting lidocaine 1% until the needle is out. The same procedure was repeated at the level of Left L3, L4, and L5 levels. At the end of the procedure, the skin was cleansed and bandages were applied. COMPLICATIONS: No acute complications. DISPOSITION / PLANS: The patient was placed in a supine position and transferred to the recovery area in a stable condition for observation and was discharged from the recovery room after meeting discharge criteria. Home discharge instructions given to the patient by the staff. The patient was reexamined prior to discharge. The patient will schedule a follow up in the clinic in 2-4 weeks.
[2024-09-15] MEDS: IV FLUID CONTINUATION 600 ML IV ONE (08:10)
[2024-09-15 08:27] VITALS: BP 144/83; PULSE 52
--- NOTE | 2024-09-15 10:03 | FL ---
EXAMINATION TYPE: FL guided pain mgmt statistic DATE OF EXAM: 09/15/2024 FLUOROSCOPY RF lumbar, 19sec fl time, [id number] images are submitted. [facility], Workstation: [email or web address], 09/15/2024 10:00 AM
== END 2024-09-15 08:42 | disposition home or self-care (01) ==
LOC: ORPAIN 06:19
PROVIDERS: ATTEND Specialist
DX: M47.816 Spondylosis without myelopathy or radiculopathy, lumbar region (principal); M51.369 Other intervertebral disc degeneration, lumbar region without mention of lumbar back pain or lower extremity pain; Z91.041 Radiographic dye allergy status
CPT/HCPCS: 64635; 64636; J2250; J3010; J2795; J1596; J1010; 99152